=== PATIENT | female | born 1985 | race Caucasian/White ===

== ENCOUNTER 2017-09-06 13:00 | Emergency (ER) | END 2017-09-06 18:13 | disposition home or self-care (01) ==

== ENCOUNTER 2017-09-06 13:59 | Outpatient (CLI) | END 2017-09-06 20:30 | disposition home or self-care (01) ==

== ENCOUNTER 2017-09-08 10:22 | Outpatient (CLI) | END 2017-09-08 12:30 | disposition home or self-care (01) ==

== ENCOUNTER 2017-09-24 12:54 | Inpatient (IN) | END 2017-09-30 16:24 | disposition home or self-care (01) | DRG 766 ==